=== PATIENT | female | born 1935 | race African-American/Black ===

== ENCOUNTER 2018-06-18 16:53 | Emergency (ER) | payer OTHER ==
[~2018-06-18] VITALS: Ht 162.6 cm; Wt 55.0 kg
[2018-06-18] MEDS ORDERED: ALLO100T PO (16:58)
[2018-06-18] MEDS ORDERED: LISI2.5T47 PO (16:58)
[2018-06-18] MEDS ORDERED: AMLO2.5T45 PO (16:58)
[2018-06-18] MEDS ORDERED: METO25TA6 PO (16:58)
[2018-06-18] MEDS ORDERED: SODIUM CHLORIDE 0.9% 1,000 ML IV ONE (17:43)
[2018-06-18 18:48] LABS: BASOPHILS % 0.6 % (0.0-2.0); EOSINOPHILS % 0.4 % (0.0-5.0); HEMATOCRIT. 40.1 % (36.0-48.0); HEMOGLOBIN. 13.1 g/dL (12.0-16.0); MEAN CORPUSCULAR HEMOGLOBIN 26.5 pg (28.0-32.0); MEAN CORPUSCULAR VOLUME 81.6 fL (81.0-99.0); MEAN PLATELET VOLUME 10.7 fl (7.4-10.4); MONOCYTES % 10.5 % (2.0-8.0); NEUTROPHILS % 61.5 % (40.0-76.0); PLATELET 174 x1000/uL (130-400); RED BLOOD CELL COUNT 4.92 mill/uL (4.2-5.4)
[2018-06-18 18:49] LABS: INR 1.1; PROTHROMBIN TIME 11.3 sec (9.1-11.1)
[2018-06-18 19:02] LABS: CHLORIDE 102 mEq/L (98-107)
[2018-06-18 19:36] LABS: CLARITY URINE CLEAR (CLEAR); COLOR URINE YELLOW (YELLOW); KETONES URINE NEGATIVE (NEGATIVE); LEUKOCYTE ESTERASE URINE 2+ (NEGATIVE); NITRITE URINE NEGATIVE (NEGATIVE); OCCULT BLOOD URINE NEGATIVE (NEGATIVE); PH URINE 6.5 (4.5-8.0); PROTEIN URINE NEGATIVE (NEGATIVE); SPECIFIC GRAVITY URINE 1.006 (1.005-1.030); UROBILINOGEN URINE 0.2 E.U./dL (0.2-1.0)
[2018-06-18 23:05] VITALS: BP 139/98
== END 2018-06-18 23:56 | disposition short-term general hospital (02) ==
LOC: ER 16:53 → CANBEDREQ 06-19 02:54
DX: R40.20 Unspecified coma (principal); N28.9 Disorder of kidney and ureter, unspecified; I10 Essential (primary) hypertension; I48.91 Unspecified atrial fibrillation; Z79.899 Other long term (current) drug therapy
CPT/HCPCS: 36415; 70450; 71045; 80053; 81003; 83605; 84484; 85025; 85610; 93005; 96360; 99285; J7030

== ENCOUNTER 2020-04-14 08:10 | Emergency (ER) | payer OTHER ==
[~2020-04-14] VITALS: Ht 162.6 cm; Wt 59.0 kg
[~2020-04-14 08:10] MED LIST: ALLO100T PO; AMLO2.5T45 PO; LISI2.5T47 PO; METO25TA6 PO
[2020-04-14] MEDS ORDERED: SODIUM CHLORIDE 0.9% 1,000 ML IV ONE (08:30)
[2020-04-14 09:40] LABS: BASOPHILS % 0.5 % (0.0-2.0); EOSINOPHILS % 0.1 % (0.0-5.0); HEMOGLOBIN. 12.2 g/dL (12.0-16.0); LYMPHOCYTES % 32.2 % (20.0-50.0); MEAN CORPUSCULAR HEMOGLOBIN 25.8 pg (28.0-32.0); MEAN CORPUSCULAR VOLUME 80.4 fL (81.0-99.0); NEUTROPHILS % 62.2 % (40.0-76.0); PLATELET 133 x1000/uL (130-400); RED BLOOD CELL COUNT 4.72 mill/uL (4.2-5.4); RED CELL DISTRIBUTION WIDTH 16.6 % (11.6-14.6)
[2020-04-14 09:45] LABS: CHLORIDE 107 mEq/L (98-107)
[2020-04-14 09:49] LABS: ETHANOL BLOOD < 10 mg/dL
[2020-04-14 09:50] LABS: INR 1.2; PROTHROMBIN TIME 12.5 sec (9.6-11.0)
[2020-04-14 09:52] LABS: CLARITY URINE CLEAR (CLEAR); COLOR URINE YELLOW (YELLOW); KETONES URINE NEGATIVE (NEGATIVE); LEUKOCYTE ESTERASE URINE 1+ (NEGATIVE); NITRITE URINE POSITIVE (NEGATIVE); OCCULT BLOOD URINE 1+ (NEGATIVE); PH URINE 5.5 (4.5-8.0); PROTEIN URINE TRACE (NEGATIVE); SPECIFIC GRAVITY URINE 1.021 (1.005-1.030)
[2020-04-14 10:13] LABS: *AMPHETAMINES SCREEN URINE NEGATIVE (NEGATIVE); *BARBITURATES SCREEN URINE NEGATIVE (NEGATIVE); *BENZODIAZEPINES SCREEN URINE NEGATIVE (NEGATIVE)
[2020-04-14 10:14] LABS: *COCAINE SCREEN URINE NEGATIVE (NEGATIVE); CANNABINOID URINE SCREEN NEGATIVE (NEGATIVE); METHADONE URINE SCREEN NEGATIVE (NEGATIVE); OPIATES URINE SCREEN NEGATIVE (NEGATIVE); PHENCYCLIDINE URINE SCREEN NEGATIVE (NEGATIVE)
[2020-04-14] MEDS ORDERED: CEFTRIAXONE 1 G PREMIX 50 ML IV ONE (10:45)
[2020-04-14 12:32] VITALS: BP 150/87
== END 2020-04-14 13:05 | disposition short-term general hospital (02) ==
LOC: ER 08:10 → EDBEDREQSVC 12:22 → ER 13:05 → CANBEDREQ 14:54
DX: R41.82 Altered mental status, unspecified (principal); N39.0 Urinary tract infection, site not specified; E86.0 Dehydration; I10 Essential (primary) hypertension; Z86.59 Personal history of other mental and behavioral disorders
CPT/HCPCS: 36415; 70450; 71045; 80053; 80305; 80320; 81003; 82962; 83605; 83690; 83880; 84145; 84484; 85025; 85610; 87040; 87077; 87086; 87186; 93005; 96361; 96365; 99285; J0696; J7030; G0480